=== PATIENT | female | born 1995 | race Caucasian/White ===

== ENCOUNTER 2019-07-18 23:19 | Emergency (ER) | payer BC, OTHER ==
[~2019-07-18] VITALS: Ht 177.8 cm; Wt 68.0 kg
[~2019-07-18 23:19] MED LIST: CAPACET CAPSUL1 EACH PO; DESYREL50 MG; IMITREX 50 MG T50 M1 PO; KAPVAY0.1 MG PO; NABUMETONE; NABUMETONE 750750 M1; PAXIL10 MG PO; PROPRANOLOL 1010 MG PO; SPRIX1 EACH NS; TOPAMAX; TOPAMAX 25 MG T25 M1; TRAMADOL 50 MG50 MG PO; ULTRAM 50MG TAB50 MG PO; YASMIN 28 TABL1 EACH; ZOLOFT100 MG PO
[2019-07-18 23:45] VITALS: BP 132/84
[2019-07-19] MEDS ORDERED: BACITRACIN28.4 G1 TOP (00:05)
== END 2019-07-19 02:03 | disposition home or self-care (01) ==
LOC: ER 23:19
DX: S71.111A Laceration without foreign body, right thigh, initial encounter (principal); G43.909 Migraine, unspecified, not intractable, without status migrainosus; F32.9 Major depressive disorder, single episode, unspecified; W26.8XXA Contact with other sharp object(s), not elsewhere classified, initial encounter; Y93.89 Activity, other specified; Y92.89 Other specified places as the place of occurrence of the external cause; Y99.8 Other external cause status